=== PATIENT | female | born 1985 | race Caucasian/White ===

== ENCOUNTER 2019-05-17 19:48 | Emergency (ER) | payer OTHER, SELFPAY ==
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
[2019-05-17 20:01] VITALS: BP 118/72; PULSE 78; RESP 18; TEMP 37.2; O2SAT 100
--- NOTE | 2019-05-17 20:48 | PC.NURSE ---
Patient in radiology at this time.
[2019-05-17] MEDS: DIAZEPAM 5 MG TABLET PO (21:28)
[2019-05-17] MEDS: KETOROLAC (*BKC) 60 MG/2 ML VIAL IM (21:28)
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
== END 2019-05-17 22:35 | disposition home or self-care (01) ==
PROVIDERS: Emergency Provider Emergency Medicine
DX: M54.2 Cervicalgia (principal); M25.512 Pain in left shoulder; M25.552 Pain in left hip; S20.212A Contusion of left front wall of thorax, initial encounter; V49.40XA Driver injured in collision with unspecified motor vehicles in traffic accident, initial encounter
CPT/HCPCS: 71045; 71101; 72125; 73030; 73502; 81025; 96372; 99284; A9270; J1885

== ENCOUNTER → 2021-07-31 12:48 | Outpatient (CLI) | payer BC, SELFPAY ==
--- NOTE | ~2021-07-31 | XR_ITS ---
XR lumbar spine 2-3V DATE: 07/31/2021 13:14 INDICATION: Neck and low back pain TECHNIQUE: AP, lateral, coned lateral lumbosacral views COMPARISON: None FINDINGS: There is mild dextroscoliosis of the thoracolumbar spine. No fracture or bone destruction of the lumbar spine. The lumbar pedicles are intact. Lumbar and lumbo sacral interspaces are well preserved. The sacroiliac joints appear normal. Surgical clips, right upper quadrant, consistent with cholecystectomy. IMPRESSION: Mild scoliosis Reviewed, dictated and finalized at location A. IMPRESSION: Mild scoliosis
--- NOTE | ~2021-07-31 | XR_ITS ---
XR cervical spine 4-5V DATE: 07/31/2021 13:14 INDICATION: Neck and low back pain TECHNIQUE: AP, open-mouth, lateral, swimmer views COMPARISON: May 17, 2019 CT cervical spine FINDINGS: C1 and C2 are normally aligned and the odontoid process is intact. No fracture or dislocati on or locked facet or prevertebral soft tissue swelling. Cervical interspaces are preserved. IMPRESSION: No significant abnormality Reviewed, dictated and finalized at location A. IMPRESSION: No significant abnormality
== END ==
PROVIDERS: PCP Emergency Medicine; Visit Provider Emergency Medicine
DX: M54.2 Cervicalgia (principal); M54.50 Low back pain, unspecified; M41.85 Other forms of scoliosis, thoracolumbar region
CPT/HCPCS: 72050; 72100

== ENCOUNTER 2022-01-20 13:20 | Outpatient (CLI) | payer BC, SELFPAY | END 2022-01-20 13:21 | disposition home or self-care (01) | PROVIDERS: Visit Provider Urology | DX: Z01.818 Encounter for other preprocedural examination (principal); N39.3 Stress incontinence (female) (male) | CPT/HCPCS: 87086 ==

== ENCOUNTER 2022-01-26 00:58 | Day surgery (SDC) | payer BC, SELFPAY ==
[2022-01-18 15:02] VITALS: BMI 31.8
--- NOTE | 2022-01-18 15:08 | PC.NURSE ---
Report to the Outpatient Waiting Room, entrance under the green pavilion located off [facility], at time 8:00 on date 01/26/22. OR Time: 10:00. Time changes happen often and if your time is changed the preop area will call you the afternoon before. - You and your visitor will be asked to self-screen and do not enter if you have any COVID symptoms. - We encourage only one visitor and NO visitors under age 16 are allowed at this time. Your visitor will receive communication by the phone number that is given day of service. - The patient visitor is requested to social distance or may leave the building when not with patient due to restrictions. - A mask is required within the hospital. Patients may have clear liquids (water, carbonated beverages, clear teas, apple juice) until 3 hours prior to surgery with a maximum of 20 ounces. - No food from midnight until time of surgery Take the following medications with a SIP of water the morning of surgery: SERTRALINE, CYCLOBENZAPRINE AND DIAZEPAM IF NEEDED Medications to discontinue per physician: N/A Date to take last dose: N/A Please no make-up, nail macedonian, hairspray, perfume, deodorant, or body powder the day of surgery. No jewelry (including any body piercings) or valuables the day of surgery, leave them at home. Please take a shower or bath the night before, or the morning of, surgery with an antibacterial soap. Wear comfortable, loose fitting clothing. - Jewelry must be removed prior to entering the operating room. Rings and piercings that are not removed may be cut off. - The hospital will not accept responsibility for valuables. - Please leave all valuables, including medications, at home the day of surgery. If you are going home after surgery, a licensed driver guide must drive you home. - NO public transportation without another adult. - We recommend that an adult stay with you for 24 hours following discharge. - We also recommend that you do not drive, make important decision, drink alcoholic beverages, or take any drugs that were not prescribed by your health care provider for at least 24 hours after your discharge time. Follow any additional instructions given to you from your surgeon. If you or anyone in your household have experienced Covid symptoms in the past week, please notify your surgeon or the nurse liaison at the phone number below for possible testing. Telephone instructions given to PT - FREDERICK MURRAY and asked if any additional questions and then verbalized understanding. Patient advised to call surgeon office or pre surgery nurse liaison [phone] if any additional questions.
--- NOTE | 2022-01-21 15:56 | P.HP_ITS ---
H&P: HPI History of Present Illness Date/Time: 01/21/22 15:56 Chief Complaint: stress incontinence Narrative: 36-year-old stress incontinence who desires surgical intervention. Observation and Kegel exercises discussed as well. Will be undergoing endometrial ablation as well Review of Systems Review of Systems: All systems reviewed & are unremarkable except as noted in HPI and below PMFSH Social History Social History Years smoked: 12 Smoking status: Current every day smoker Tobacco type: cigarettes Alcohol intake: current Alcohol use details: 1/MONTH Substance use: current Substance use type: marijuana Additional living arrangements comments: SON Gender identity (if verbalized by the patient): Female Spiritual care concerns: No Meds Home Medications and Allergies Home Medications Medication Instructions Recorded Confirmed Type diazepam 5 mg tablet 5 mg PO BID PRN muscle spasm #10 05/17/19 01/18/22 Rx tabs cyclobenzaprine 10 mg tablet 10 mg PO DAILY PRN Pain 01/18/22 01/18/22 History sertraline 50 mg tablet 50 mg PO DAILY 01/18/22 01/18/22 History Allergies Allergy/AdvReac Type Severity Reaction Status Date / Time No Known Allergies Allergy Verified 01/18/22 15:02 Exam Narrative: no acute distress normal breathing urethral mobility noted alert and oriented x3 Assessment and Plan Assessment and plan (1) WENDY (stress urinary incontinence, female): Code(s): N39.3 - Stress incontinence (female) (male) Status: Acute Assessment and Plan: urethral sling. Risks of bleeding, infection, postoperative voiding dysfunction including incontinence and retention, hip and leg pain, dyspar eunia, mesh related complications discussed. Agrees to proceed
[2022-01-26] VITALS (8 sets, daily range): BP systolic 95–125; BP diastolic 53–75; PULSE 62–104; RESP 14–20; TEMP 36.4–36.8; O2SAT 99–100
--- NOTE | 2022-01-26 07:11 | WPDHPUPDATE1 ---
History and Physical Update Update Date/Time: 01/26/22 07:11 History and Physical has been reviewed, including an updated exam of the patient. There are NO changes in the patient's condition. Risks, benefits, and alternatives have been discussed and questions answered. Patient agrees to proceed with procedure.
[2022-01-26] MEDS: ACETAMINOPHEN 500 MG TABLET 1000 MG PO (09:00)
--- NOTE | 2022-01-26 09:11 | P.PNAN_ITS ---
Anes - Initial Pre Proc Eval Procedure: Operation Date: 01/26/22 10:00 Proposed Procedures p Urethral Sling, - Moody Sotomayor MD s Laparoscopic Bilateral Salpingectomy, Hysteroscopy with Taylor Endometrial Ablation - Ebneezer Pimentel MD Date/Time: 01/26/22 09:11 Surgeon: Moody Sotomayor MD Pre Op Diagnosis: stress incontinence, sterilization,menorrhaghia Patient Data Age: 36 Gender: F Height: 1.6 m Weight: 81.65 kg Allergies Allergy/AdvReac Type Severity Reaction Status Date / Time No Known Allergies Allergy Verified 01/26/22 08:33 Home Medications Medication Instructions Recorded Confirmed Type diazepam 5 mg tablet 5 mg PO BID PRN muscle spasm #10 05/17/19 01/26/22 Rx tabs cyclobenzaprine 10 mg tablet 10 mg PO DAILY PRN Pain 01/18/22 01/26/22 History sertraline 50 mg tablet 50 mg PO DAILY 01/18/22 01/26/22 History Patient hx anesthesia problems: none Family hx anesthesia problems: none Results Review: All pre-operative results and documents have been reviewed as part of the pre- operative evaluation. [facility] Past Medical History Medical History Obesity Smoker Surgical History Surgical History (Updated 01/26/22 @ 09:12 by Shukri Bermudez MD) History of cholecystectomy Social History Social History Years smoked: 12 Smoking status: Current every day smoker Tobacco type: cigarettes Alcohol intake: never Alcohol use details: 1/MONTH Substance use: never Substance use type: marijuana Living arrangements: with family Additional living arrangements comments: SON Gender identity (if verbalized by the patient): Female Spiritual care concerns: No Anes - Eval Final PreProcedure Day of Procedure 01/26/22 09:11 Patient weight: obese Heart: regular rate and rhythm Lungs: clear to auscultation Airway: Mallampati scale class II Neurological: alert and oriented Last oral intake: >/= 8 hours ASA classification: II Emergent: no Anesthetic plan: proceed Anesthesia type and monitoring: general ETT and standard monitoring Results Review: All pre-operative results and documents have been reviewed as part of the pre- operative evaluation. Informed Consent: The patient's anesthetic plan and its attendant risks and benefits were discussed with the patient/family/POA. Questions were solicited and answers provided to the satisfaction of the patient/family/POA.
[2022-01-26] MEDS: LACTATED RINGERS 1,000 ML 30 ML IV CONT ×2 (09:15→11:50)
--- NOTE | 2022-01-26 10:07 | WPDHPUPDATE1 ---
History and Physical Update Update Date/Time: 01/26/22 10:07 History and Physical has been reviewed, including an updated exam of the patient. There are NO changes in the patient's condition. Risks, benefits, and alternatives have been discussed and questions answered. Patient agrees to proceed with procedure.
--- NOTE | 2022-01-26 10:11 | PM.IMHP ---
H&P: HPI History of Present Illness Date/Time: 01/26/22 10:11 Chief Complaint: Menorrhagia Narrative: this patient is a 36-year-old female with severe menorrhagia and unwanted fertility. We have agreed to perform female sterilization and endometrial ablation with hysteroscopy. She understands there is risk. She understands injuries may occur as a result and prolonged hospitalization, more surgery, severe illness. She understands risk of hemorrhage and infection. She denies any chest pain or shortness of breath. She denies any nausea, vomiting, fever, chills. Review of Systems Review of Systems: All systems reviewed & are unremarkable except as noted in HPI and below Constitutional: Constitutional: Denies chills, Denies fatigue, Denies fever(s) and Denies weakness Eyes: Eyes: Denies blurry vision, Denies change in vision, Denies loss of peripheral vision, Denies loss of vision, Denies other visual disturbances and Denies eye pain ENT: Denies vertigo, Denies dizziness, Denies hearing loss, Denies mouth pain, Denies nasal obstruction, Denies neck mass and Denies neck pain Cardiovascular: Cardiovascular: Denies chest pain, Denies diaphoresis, Denies syncope, Denies leg edema and Denies dyspnea Respiratory: Respiratory: Denies chest congestion, Denies cough, Denies hemoptysis, Denies dyspnea and Denies wheezing Gastrointestinal: Gastrointestinal: Denies abdominal pain, Denies constipation, Denies diarrhea, Denies nausea and Denies vomiting Genitourinary: Genitourinary: Denies hematuria, Denies change in libido, Denies nocturia, Denies genital lesions, Denies flank pain and Denies urinary urgency Musculoskeletal: Musculoskeletal: Denies abnormal gait, Denies back pain, Denies myalgias, Denies arthralgias, Denies joint swelling, Denies muscle weakness and Denies neck pain Integumentary/Breasts: Skin/Breast: Denies swelling, Denies breast pain, Denies breast mass, Denies dry skin, Denies nipple discharge, Denies unusual bruising and Denies jaundice Neurologic: Denies Neuro-related abnormal movements, Denies Abnormal speech present, Denies abnormal gait, Denies behavioral changes, Denies confusion, Denies vertigo, Denies dizziness, Denies syncope, Denies loss of vision, Denies memory loss, Denies convulsions and Denies weakness Psychiatric: Psychiatric: Denies abnormal sleep pattern, Denies behavioral changes, Denies change in libido, Denies confusion, Denies depression, Denies anhedonia and Denies memory loss Endocrine: Endocrine: Reports no additional endocrine complaints, Denies change in libido and Denies fatigue Hematologic/Lymphatic: Hematologic/Lymphatic: Reports no additional hematologic/lymphatic complaints Allergic/Immunologic: Allergic/Immunologic: Reports no additional allergic/immunologic complaints and Denies wheezing PMFSH Past Medical History Medical History Obesity Smoker Surgical History Surgical History (Updated 01/26/22 @ 09:12 by Shukri Bermudez MD) History of cholecystectomy Social History Social History Years smoked: 12 Smoking status: Current every day smoker Tobacco type: cigarettes Alcohol intake: never Alcohol use details: 1/MONTH Substance use: never Substance use type: marijuana Living arrangements: with family Additional living arrangements comments: SON Gender identity (if verbalized by the patient): Female Spiritual care concerns: No Meds Home Medications and Allergies Home Medications Medication Instructions Recorded Confirmed Type diazepam 5 mg tablet 5 mg PO BID PRN muscle spasm #10 05/17/19 01/26/22 Rx tabs cyclobenzaprine 10 mg tablet 10 mg PO DAILY PRN Pain 01/18/22 01/26/22 History sertraline 50 mg tablet 50 mg PO DAILY 01/18/22 01/26/22 History Allergies Allergy/AdvReac Type Severity Reaction Status Date / Time No Known Allergies Allergy Verified 01/26/22 08:33 Vital Signs Vit
[2022-01-26] MEDS: KETOROLAC 15 MG/ML VIAL (*BKC) IV PUSH (10:33)
[2022-01-26] MEDS: ceFAZolin 2 GM/D5W 50 ML 2 GM/50 ML BAG IVPB (10:33)
--- NOTE | 2022-01-26 11:11 | W.PM.PROC2 ---
Procedure Note - Detailed Date of Procedure 01/26/22 Pre-op Diagnosis stress incontinence Post-op Diagnosis Same Procedure Performed mid urethral sling cystoscopy Surgeon Moody Sotomayor MD Indications This is a female with confirm stress urinary incontinence. She desires surgical correction. She understands the risks of bleeding, infection, injury to the urinary tract, vaginal mesh extrusion, urinary tract mesh erosion, obstructive voiding requiring a secondary procedure, hip and leg pain, dyspareunia, inability to improve overactive bladder symptoms. She agrees to proceed. Description of Procedure She was correctly identified. Informed consent obtained. She was brought the operating room. She was given appropriate anesthesia. She was given appropriate perioperative antibiotics. A time-out performed. I marked out the site of the inner thigh incisions. I anesthetized the skin and made those incisions. I anesthetized the anterior vaginal wall over the mid urethra. I made a 1 cm incision. I dissected out laterally taking great care not to injure the refilled vaginal wall. I passed the helical trocars. First on the left. Then on the right. I did this from the thigh incision towards the vaginal incision. The sling was connected to the trocars and brought out through the thigh incision. I tensioned the sling appropriately. I cut and the plastic sheaths. I then closed the incision with 2 0 Vicryl. On cystoscopy there is no tumors or surgical artifact. There was no surgical artifact in the urethra. I cut the excess sling material. Close incisions with glue. She was turned over to her health companion for the remainder of her procedure. Implants Urethral sling Estimated Blood Loss 30 Drains No Packing No Pathology None sent Complications No immediate complications Condition Stable Disposition PACU
[2022-01-26] MEDS: BUPIVACAINE/EPINEPHRINE 0.25% 50 ML VIAL INFILTRATE (11:38)
[2022-01-26] MEDS: oxyCODONE HCL (*CRX) 5 MG TAB IR PO (13:09)
--- NOTE | 2022-01-26 13:14 | P.OP_ITS ---
Procedure Note - Detailed Date of Procedure 01/26/22 Pre-op Diagnosis stress incontinence, sterilization,menorrhaghia Post-op Diagnosis Same Procedure Performed laparoscopic bilateral salpingectomy, endometrial ablation with hysteroscopy Surgeon Ebenezer Pimentel MD Anesthesia General Indications Menorrhagia, female sterilization Description of Procedure Patient was taken the operating room. She has prepped draped in the dorsal lithotomy position after induction of general anesthesia. A 5 mm abdominal incision was made in left upper quadrant of the abdomen with scalpel. A 5 mm trocars inserted the intra-abdominal cavity under direct visualization of the sc ope. Pneumoperitoneum was achieved. A 5 mm periumbilical incision was made using a scalpel on the abdominal scan. A 5 mm trocar was inserted the intra- abdominal cavity under visualization of the scope. A 5 mm incision made left lower quadrant of the abdomen. A 5 mm trocar was inserted the intra-abdominal cavity and direct visualization of the scope. The bilateral fallopian tubes were removed. The paratubal tissue in the area of the uterus was grasped with the LigaSure cautery and transected after being cauterized. The paratubal tissue from the ovary to the uterine cornu was cauterized and transected with LigaSure cautery. This was all done in a bilateral fashion. The tube was transected at the area of the uterine cornua and the tubes was removed through the 5 mm trocar site. The pneumoperitoneum was reduced. The trocars were removed. The skin was closed with subcuticular 4 Monocryl and covered with Dermabond. Our attention was then turned to the endometrial ablation portion of the procedure. A speculum was placed in the vagina. The cervix was grasped with a tenaculum. The cervix was dilated to approximately 8 mm with Lin dilators. The hysteroscope was inserted. And the below findings were noted. All of the intrauterine surfaces were curettaged with a medium-size curette and the specimens were collected. Measurements of the cervix were taken using the uter ine sound and the hysteroscope. The intrauterine cavity measurements were entered into the handpiece. The device was inserted into the intrauterine cavity and the array was expanded. The balloon cuff was inflated. When an adequate seal was formed the safety and energy cycles were initiated and completed. The array was collapsed, the balloon was deflated. The insert was withdrawn. The hysteroscope was reinserted and a well desiccated intrauterine cavity was observed. The patient was taken recovery room stable condition. Sponge lap and needle counts were correct x2. She tolerated the procedure well. Estimated Blood Loss 30 Pathology Yes Complications No immediate complications Condition Stable Disposition PACU
== END 2022-01-26 13:55 | disposition home or self-care (01) ==
PROVIDERS: Obstetrics & Gynecology; Visit Provider Urology
PROC: (CPT 57288; principal; 2022-01-26 10:00)
PROC: 0UDB8ZZ Extraction of Endometrium, Via Natural or Artificial Opening Endoscopic (ICD-10-PCS; CPT 58558; 2022-01-26 10:00)
DX: N39.3 Stress incontinence (female) (male) (principal); N92.0 Excessive and frequent menstruation with regular cycle; Z30.2 Encounter for sterilization; N83.8 Other noninflammatory disorders of ovary, fallopian tube and broad ligament; F17.210 Nicotine dependence, cigarettes, uncomplicated; E66.9 Obesity, unspecified; Z68.34 Body mass index [BMI] 34.0-34.9, adult
CPT/HCPCS: 57288; 58661; 58563; 88302; A9270; C1771; J0690; J1100; J1885; J2250; J2405; J2704; J2710; J3010; J7030; J7120

== ENCOUNTER 2023-12-24 10:40 | Emergency (ER) | payer BC, SELFPAY ==
[2023-12-24] VITALS (32 sets, daily range): BP systolic 85–110; BP diastolic 42–75; PULSE 48–70; RESP 16–18; TEMP 36.6–36.7; O2SAT 91–100
--- NOTE | 2023-12-24 12:19 | ED.NAVMDI ---
HPI - Nausea/Vomiting/Diarrhea General Chief complaint: Nausea/Vomiting/Diarrhea Stated complaint: N/V/D Time Seen by Provider: 12/24/23 12:01 History of Present Illness HPI Narrative: 38 Year old female presenting with vomiting and diarrhea. States that for the last 4 days she has been unable to stop vomiting. States that she was able to keep down small meal yesterday. Also complains of numerous episodes of diarrhea. Has had a few episodes of lightheadedness and she fainted on a date. No chest pain, shortness of breath, palpitations, cough. Complains of some mild rhinorrhea, tested negative for COVID at home. Denies any abdominal pain, flank pain, dysuria, hematuria. Related Data Home Medications Medication Instructions Recorded Confirmed cyclobenzaprine 10 mg tablet 10 mg PO DAILY PRN Pain 01/18/22 01/26/22 sertraline 50 mg tablet 50 mg PO DAILY 01/18/22 01/26/22 Allergies Allergy/AdvReac Type Severity Reaction Status Date / Time No Known Allergies Allergy Verified 12/24/23 10:51 Review of Systems Review of Systems: All systems reviewed & are unremarkable except as noted in HPI and below PMFSH Past Medical History Medical History Obesity Smoker Surgical History Surgical History History of cholecystectomy Social History Social History Years smoked: 12 Smoking status: Current every day smoker Tobacco type: cigarettes Alcohol intake: current Alcohol use details: 1/MONTH Substance use: current Substance use type: marijuana Living arrangements: with family Additional living arrangements comments: SON Gender identity (if verbalized by the patient): Female Spiritual care concerns: No Exam Narrative: GENERAL: Well-appearing, in no acute distress, pleasant cooperative HEAD: Normocephalic, atraumatic. EYES: PERRLA and EOMI. ENT: Mucous membranes moist. NECK: Supple. CHEST: Clear to auscultation. No respiratory distress. HEART: Regular rate and rhythm ABDOMEN: Soft, nontender, nondistended EXTREMITIES: Normal range of motion. SKIN: Warm, dry, no rash. NEURO: No focal deficits. Alert and oriented x3. PSYCH: Normal mood and affect. Course Vital Signs Vital signs: Vital Signs Temperature 97.9 F 12/24/23 10:47 Pulse Rate 48 L 12/24/23 10:47 Respiratory Rate 18 12/24/23 10:47 Blood Pressure 106/44 L 12/24/23 10:47 Pulse Oximetry 100 12/24/23 10:47 Oxygen Delivery Room Air 12/24/23 10:47 Temperature 97.9 F 12/24/23 10:47 Pulse Rate 50 L 12/24/23 16:01 Respiratory Rate 16 12/24/23 16:01 Blood Pressure 96/46 L 12/24/23 16:01 Pulse Oximetry 100 12/24/23 16:01 Oxygen Delivery Room Air 12/24/23 10:47 MDM - Nausea/Vomiting/Diarrhea MDM Narrative Medical decision making narrative: 38-year-old female presenting with vomiting and diarrhea for the last several days. Vitals within normal limits. Patient is well-appearing in no acute distress. Exam otherwise remarkable for the above. Abdomen is soft and benign. Blood work is unremarkable. Lipase is normal. UA is contaminated, will not treat for infection at this time she denies any urinary complaints. Patient received 2 L of fluids and states that she feels much better. Orthostatics vitals are normal. Will send in for Zofran in case her nausea returns. Advised close PCP follow-up. Patient is agreeable with this plan. Discharged stable condition. Differential Diagnosis Differential diagnosis: Likely food poisoning, gastroenteritis and dehydration Medical Records Attestation: I reviewed the patient's medical records. Lab Data Attestation: I reviewed the patient's lab results. 12/24/23 12:26 12/24/23 12:26 Labs: Lab Results 12/24/23 12/24/23 Range/Units 12:26 14:08 WBC 9.0 (4.5-10.0) K/mm3 RBC 4.73 (4.2-5.4) M/mm3 Hg
[2023-12-24] MEDS: SODIUM CHLORIDE 0.9% IV 1,000 ML 999 ML IV CONT ×2 (12:28→13:58)
[2023-12-24 12:31] LABS: Basophils Percent Auto 0.4 % (0.2-1.2); Eosinophils Percent Auto 0.4 % (0-4.4); Hematocrit 40.2 % (37.0-47.0); Hemoglobin 13.2 g/dL (12.0-15.0); Immature Granulocyte Absolute 0.06 K/mm3 (0.00-0.031); Immature Granulocyte Percent A 0.7 % (0-0.5); Lymphocytes Percent Auto 25.7 % (18.3-44.2); Mean Corpuscular HGB Conc 32.8 g/dl (32-36); Mean Corpuscular Hemoglobin 27.9 pg (26-34); Mean Platelet Volume 10.7 fl (7.4-10.4); Monocytes Absolute Auto 0.6 K/mm3 (0.1-0.6); Monocytes Percent Auto 6.1 % (2.6-8.5); Neutrophils Percent Auto 66.7 % (45.5-73.1); Platelet Count Result 270 k/mm3 (150-375); Red Blood Count 4.73 M/mm3 (4.2-5.4); Red Cell Distribution Width 12.7 % (11.5-14.5)
[2023-12-24 12:50] LABS: Alanine Aminotransferase 9 U/L (6-35); Albumin Level 4.7 g/dL (3.5-5.1); Alkaline Phosphatase 58 U/L (38-126); Anion Gap 12 mmol/L (4-12); Aspartate Amino Transferase 21 U/L (14-36); Bilirubin,Total 0.9 mg/dL (0.2-1.3); Blood Urea Nitrogen 13 mg/dL (7-17); Calcium 9.3 mg/dL (8.4-10.2); Carbon Dioxide 25 mmol/L (22-30); Chloride 99 mmol/L (98-107); Estimated CRCL calculation 97 ml/min; Estimated Glomerular Filt Rate > 60; Glucose 95 mg/dL (65-110); Lipase 52 U/L (23-300); Potassium 3.7 mmol/L (3.4-5.0); Sodium 136 mmol/L (137-145)
[2023-12-24] MEDS: FAMOTIDINE 20 MG/2 ML VIAL IV PUSH (13:58)
[2023-12-24 14:16] LABS: Add Urine Microscopic? YES; Appearance Urine Cloudy (Clear); Bacteria Urine 1+ /hpf; Bilirubin Urine Negative (Negative); Blood Urine Negative (Negative); Color Urine Dark Yellow (Yellow); Glucose Urine UA Negative (Negative); Ketones Urine 4+ mg/dL (Negative); Leukocyte Esterase Ur Negative LEU/UL (Negative); Nitrate Urine Negative (Negative); Non Pathogenic Casts 0-2; Protein Urine Trace mg/dL (Negative); RBC Urine 0-2 /hpf (0-2); Squamous Epithelial Cell Urine Moderate /hpf (Few); pH Urine 6.5 (5.0-9.0)
== END 2023-12-24 16:47 | disposition home or self-care (01) ==
PROVIDERS: Emergency Provider Emergency Medicine
DX: R11.2 Nausea with vomiting, unspecified (principal); R19.7 Diarrhea, unspecified; E86.0 Dehydration; E66.9 Obesity, unspecified; Z68.26 Body mass index [BMI] 26.0-26.9, adult; Z90.49 Acquired absence of other specified parts of digestive tract; Z79.899 Other long term (current) drug therapy
CPT/HCPCS: 36415; 80053; 81001; 83690; 85025; 87086; 87088; 96361; 96374; 99284; J7030